=== PATIENT | female | born 1980 | race Caucasian/White ===

== ENCOUNTER → 2019-12-18 | Outpatient (CLI) | payer MEDICAID, SELFPAY ==
[2019-12-18 11:12] VITALS: BMI 30.4
[2019-12-20 09:54] LABS: HPV APTIMA, High Risk Negative (Negative)
== END | disposition home or self-care (01) ==
LOC: LABSPEC 12:45
PROVIDERS: PCP Nurse Practitioner Primary Care; Referring Provider Nurse Practitioner Women's Health; Visit Provider Nurse Practitioner Women's Health
DX: Z12.4 Encounter for screening for malignant neoplasm of cervix (principal)
CPT/HCPCS: 87624; 88175; G0145

== ENCOUNTER → 2019-12-24 18:19 | Outpatient (CLI) | payer MEDICAID, SELFPAY ==
[2019-12-18 11:12] VITALS: BMI 30.4
--- NOTE | 2019-12-24 18:22 | US_ITS ---
STUDY: ULTRASOUND OF THE FEMALE PELVIS - COMPLETE REASON FOR EXAM: Female, 39 years old. IRREG MENSES,, ENLARGED UT LMP: TECHNIQUE: Transabdominal and endovaginal TECHNICAL QUALITY: Adequate. COMPARISON: None. FINDINGS: The uterus is anteverted and is in a midline position. The uterus measures 10.8 x 7.5 x 6.1 cm. Nabothian cysts at the uterine cervix. The endometrium measures 19 mm in thickness, and is hyperechoic. There is no demonstrated endometrial mass. There is no demonstrated myometrial mass. The patient does not have an I.U.D. The right ovary is visualized. The right ovary measures 3.9 x 2.0 x 1.2 cm. There is a 1.4 cm right ovarian cyst. There is normal arterial and normal venous vascularity. The left ovary is visualized. The left ovary measures 3.8 x 3.2 x 1.9 cm. There is a septated cystic 1.8 x 2.3 x 1.5 cm complex lesion. There is normal arterial and normal venous vascularity. There is trace fluid in the cul-de-sac. The pre void volume of the bladder was 366 ml. US/Pelvic (Non ) IMPRESSION: Thickened endometrium. Right ovarian cyst. Left ovarian complex cystic nodule with septations. Trace pelvic fluid. Electronically Signed: Aakash Mckeon DO at 21:23 EDT Tel [phone], Service support ,
--- NOTE | 2019-12-24 18:36 | US_ITS ---
STUDY: ULTRASOUND OF THE FEMALE PELVIS - COMPLETE REASON FOR EXAM: Female, 39 years old. IRREG MENSES,, ENLARGED UT LMP: TECHNIQUE: Transabdominal and endovaginal TECHNICAL QUALITY: Adequate. COMPARISON: None. FINDINGS: The uterus is anteverted and is in a midline position. The uterus measures 10.8 x 7.5 x 6.1 cm. Nabothian cysts at the uterine cervix. The endometrium measures 19 mm in thickness, and is hyperechoic. There is no demonstrated endometrial mass. There is no demonstrated myometrial mass. The patient does not have an I.U.D. The right ovary is visualized. The right ovary measures 3.9 x 2.0 x 1.2 cm. There is a 1.4 cm right ovarian cyst. There is normal arterial and normal venous vascularity. The left ovary is visualized. The left ovary measures 3.8 x 3.2 x 1.9 cm. There is a septated cystic 1.8 x 2.3 x 1.5 cm complex lesion. There is normal arterial and normal venous vascularity. There is trace fluid in the cul-de-sac. The pre void volume of the bladder was 366 ml. US/Transvaginal Non- IMPRESSION: Thickened endometrium. Right ovarian cyst. Left ovarian complex cystic nodule with septations. Trace pelvic fluid. Electronically Signed: Aakash Mckeon DO at 21:23 EDT Tel [phone], Service support ,
== END ==
PROVIDERS: PCP Nurse Practitioner Primary Care; Referring Provider Nurse Practitioner Women's Health; Visit Provider Nurse Practitioner Women's Health
DX: N83.292 Other ovarian cyst, left side (principal); N83.201 Unspecified ovarian cyst, right side; N92.1 Excessive and frequent menstruation with irregular cycle; N85.2 Hypertrophy of uterus; R93.89 Abnormal findings on diagnostic imaging of other specified body structures
CPT/HCPCS: 76830; 76856